=== PATIENT | male | born 1950 | race Caucasian/White ===

== ENCOUNTER 2016-08-10 20:53 | Emergency (ER) | payer MEDICARE, MEDICAID ==
[2016-08-10] MEDS: 0.9 % SODIUM CHLORIDE 1,000 ML BAG IV ONE (21:03)
[2016-08-10] MEDS: IPRATROPIUM/ALBUTEROL (0.5MG/3MG) NEB INH ONE (21:09)
--- NOTE | 2016-08-10 21:09 | Emergency Department Record ---
History of Present Illness - General Chief complaint: Nausea, Vomiting, Diarrhea Stated complaint: NAUSEA, BODY PAIN,UTI? Source: Patient Mode of Arrival: Ambulatory Limitations: No limitations - History of Present Illness Initial comments: 66 yo male presents not feeling well for about a week. He reports the symptoms started with cough, congestion, sore throat, body aches. His cough is productive. He is a smoker with a COPD history. He has had decreased appetite , nausea, vomited and some diarrhea. No definite fevers. He has had some chills. He has a chronic suprapubic catheter that is functioning well. No rash. No leg swelling. No blood in the stools or diarrhea. MD complaint: Diarrhea, Nausea, Vomiting, Other (cough) -: Days(s) Description of Vomiting: Watery Quality: Cramping Consistency: Intermittent Improves with: Rest Worsens with: Eating Context: Other (Recent URI symptoms) Associated Symptoms: Cough, Headaches, Loss of appetite, Malaise, Myalgias, Nausea/vomiting, Shortness of breath, Weakness - Related Data Previous Rx's Medication Instructions Recorded Ciprofloxacin HCl [Cipro] 500 mg PO BID #14 tab 05/29/15 Levofloxacin [Levaquin Tab] 500 mg PO DAILY #14 tab 08/10/16 Prednisone [Prednisone 20Mg] 20 mg PO BID #10 tab 08/10/16 Allergies Allergy/AdvReac Type Severity Reaction Status Date / Time codeine Allergy HIVES Verified 08/10/16 21:10 Penicillins Allergy HIVES Verified 05/29/15 01:33 Review of Systems Constitutional: Reports: Chills, Malaise, Weakness. Denies: Fever Eyes: Denies: Eye discharge, Eye pain, Photophobia, Vision change ENT: Reports: Congestion, Ear pain, Throat pain Respiratory: Reports: Cough, Dyspnea, Wheezes. Denies: Hemoptysis Cardiovascular: Denies: Chest pain, Palpitations, Syncope Endocrine: Reports: Fatigue Gastrointestinal: Reports: Abdominal pain, Diarrhea, Nausea, Vomiting. Denies: Constipation, Hematemesis, Hematochezia, Melena Genitourinary: Denies: Discharge, Dysuria, Frequency, Hematuria, Retention Musculoskeletal: Reports: Myalgia. Denies: Arthralgia, Joint swelling Skin: Denies: Bruising, Change in color, Rash Neurological: Reports: Headache Psychiatric: Denies: Anxiety Hematological/Lymphatic: Denies: Blood Clots, Easy bleeding, Easy bruising, Swollen glands Past Medical History - SOCIAL HISTORY Smoking Status: Current every day smoker - RESPIRATORY Hx Respiratory Disorders: Yes Hx Bronchitis: Yes - CARDIOVASCULAR Hx Cardio Disorders: No - NEURO Hx Neuro Disorders: No - GI Hx GI Disorders: No - Hx Genitourinary Disorders: Yes Hx Bladder Problem: Yes - ENDOCRINE Hx Endocrine Disorders: No - MUSCULOSKELETAL Hx Musculoskeletal Disorders: Yes Hx Back Injury: Yes - PSYCH Hx Psych Problems: No - HEMATOLOGY/ONCOLOGY Hx Hematology/Oncology Disorders: No Physical Exam - General General Appearance: Alert, Oriented x3, Cooperative, No acute distress Limitations: No limitations - Head Head exam: Atraumatic, Normal inspection - Eye Eye exam: Normal appearance, PERRL. negative: Conjunctival injection, Periorbital swelling, Scleral icterus - ENT ENT exam: Normal exam, Mucous membranes moist, Normal external ear exam, Normal orophraynx, TM's normal bilaterally Ear exam: Normal external inspection. negative: External canal tenderness Nasal Exam: Normal inspection, Discharge. negative: Sinus tenderness Mouth exam: Normal external inspection, Tongue normal. negative: Drooling, Muffled voice Teeth exam: Normal inspection. negative: Dental caries Throat exam: Tonsillar erythema. negative: Normal inspection, Tonsillomegaly, Tonsillar exudate, R peritonsillar mass, L peritonsillar mass - Neck Neck exam: Normal inspection, Full ROM. negative: Lymphadenopathy, Tenderness - Respiratory Respiratory exam: Decreased breath sounds, Rhonchi, Wheezes. negative: Normal lung sounds bilaterally, Accessory muscle use, Chest wall tenderness, Prolonged expiratory, Respiratory distress - Cardiovascular Cardiovascular Exam: Regular rate, Normal rhythm, Normal heart sounds - GI/Abdominal GI/Abdominal exam: Soft. negative: Tenderness - Rectal Rectal exam: Deferred - exam: Deferred - Extremities Extremities exam: Normal inspection, Full ROM, Normal capillary refill. negative: Pedal edema, Tenderness - Back Back exam: Reports: Normal inspection, Full ROM. Denies: Muscle spasm, Rash noted, Tenderness - Neurological Neurological exam: Alert, Normal gait, Oriented X3 - Psychiatric Psychiatric exam: Normal affect, Normal mood - Skin Skin exam: Dry, Intact, Normal color, Warm Course - Reevaluation(s) Reevaluation #1: The labs were reviewed No acute changes of the CBC,CMP UA is N positive and LE positive CXR was read as no acute changes Levaquin will be provided. 08/10/16 21:55 Reevaluation #2: No tachycardia or hypoxia in the ED He will be DC home with Levaquin, Prednisone He is to return if any concerns and otherwise call his PCP on Friday for close followup 08/10/16 21:56 Medical Decision Making - Lab Data Result diagrams: 08/10/16 21:10 08/10/16 21:10 Disposition Clinical Impression: COPD exacerbation, UTI (urinary tract infection) Condition: (1) Good Instructions: Urinary Tract Infection in Men (ED), COPD Exacerbation, [employer] (GEN) Additional Instructions: Return immediately if worse, fever or any new concerns Take the Levaquin twice daily Take the Prednisone twice daily Use your Inhaler every 4 hours as needed for wheezing You urine will be sent for a culture to ensure the antibiotic is effective Prescriptions: Levofloxacin [Levaquin Tab] 500 mg PO DAILY #14 tab Prednisone [Prednisone 20Mg] 20 mg PO BID #10 tab Forms: Patient Portal Access
[2016-08-10] MEDS ORDERED: METHYLPREDNISOLONE PF 125MG/VIAL IVP SCH (21:15)
[2016-08-10] MEDS: METHYLPREDNISOLONE PF 125MG/VIAL IVP ONE (21:16)
[2016-08-10 21:19] LABS: BASO % 0.7 % (0-6); EOS % 4.8 % (0-6); GRAN % 66.1 % (47-80); HEMATOCRIT 44.3 % (42.0-52.0); HEMOGLOBIN 14.9 gm/dl (14.0-18.0); MEAN CELL VOLUME 83.9 fl (81-97); MEAN CORPUSCULAR HEMOGLOBIN 28.2 pg (27-33); MEAN CORPUSCULAR HGB CONC 33.6 g/dl (32-36); MEAN PLATELET VOLUME 11.3 fl (7.4-10.4); MONO % 14.4 % (0-9); PLATELET COUNT 227 K/uL (130-400); RED BLOOD COUNT 5.28 M/uL (4.40-5.70); RED CELL DISTRIBUTION WIDTH 14.4 % (11.5-14.5); WHITE BLOOD COUNT W/O DIFF 7.6 K/uL (4.2-12.2)
[2016-08-10 21:20] LABS: URINE APPEARANCE CLEAR; URINE BILIRUBIN NEGATIVE (NEGATIVE); URINE BLOOD MODERATE (NEGATIVE); URINE COLOR YELLOW; URINE GLUCOSE (UA) NEGATIVE (NEGATIVE); URINE KETONE 15 mg/dL (NEGATIVE); URINE LEUKOCYTE ESTERASE MODERATE (NEGATIVE); URINE NITRITE POSITIVE (NEGATIVE); URINE UROBILINOGEN 0.2 E.U./dL (0.20 - 1.00)
[2016-08-10 21:29] LABS: URINE BACTERIA 4+; URINE MUCUS HEAVY; URINE RBC >50 (NONE SEEN); URINE TRIPLE PHOSPHATE CRYSTAL 4+ /hpf; URINE WBC >50 (0-2/hpf)
[2016-08-10 21:33] LABS: ALB/GLOB RATIO 1.5 (1.1-1.8); ALBUMIN 4.8 gm/dL (3.5-5.0); ALKALINE PHOSPHATASE 134 U/L (38-126); ALT/SGPT 45 U/L (21-72); ANION GAP 11.9 (7-16); AST/SGOT 28 U/L (17-59); BILIRUBIN,TOTAL 0.97 mg/dL (0.2-1.3); BLOOD UREA NITROGEN 10 mg/dL (9-20); CARBON DIOXIDE 22.1 mmol/L (22-30); CREATININE 0.8 mg/dL (0.66-1.25); EST GLOMERULAR FILTRATION RATE > 60 ml/min; GLUCOSE,RANDOM 112 mg/dL (70-110)
[2016-08-10 21:37] LABS: INFLUENZA A NEGATIVE (NEGATIVE); INFLUENZA B NEGATIVE (NEGATIVE); STREP A SCREEN NEGATIVE (NEGATIVE)
[2016-08-10] MEDS: KETOROLAC 30 MG/ML VIAL IVP ONE (21:59)
[2016-08-10] MEDS: LEVOFLOXACIN 500 MG TABLET PO ONE (22:00)
--- NOTE | 2016-08-14 13:10 | RADIOLOGY REPORT ---
EXAM: CHEST, TWO VIEWS HISTORY: DRY COUGH. TECHNIQUE: Two views of the chest were provided along with the comparison study dated 07/27/14. FINDINGS: The cardiomediastinal silhouette is within normal limits for size and contour. The bang appear unremarkable. Mild tortuosity of the thoracic aorta is noted. There is no radiographic evidence of a focal infiltrate, pleural effusion or pneumothorax. Incidental note is made of two nodular densities within the bilateral mid lung raya. This finding likely represents nipple shadows. IMPRESSION: NO RADIOGRAPHIC EVIDENCE OF AN ACUTE INTRATHORACIC PROCESS. JOB NUMBER: [id number] MTDD
== END 2016-08-10 22:18 | disposition home or self-care (01) ==
LOC: ER 20:53
DX: J44.1 Chronic obstructive pulmonary disease with (acute) exacerbation (principal); N39.0 Urinary tract infection, site not specified; R11.2 Nausea with vomiting, unspecified; R19.7 Diarrhea, unspecified; R31.29 Other microscopic hematuria; F17.210 Nicotine dependence, cigarettes, uncomplicated
CPT/HCPCS: 99284 ×2; 96374; 96375; 85025; 80053; 81001; 87205; 87880; 87400; 87086; 71020; 94640; J1885; J2930; J7030

== ENCOUNTER 2017-03-18 15:08 | Emergency (ER) | payer MEDICARE, MEDICAID ==
[2017-03-18 15:43] LABS: BASO % 0.2 % (0-6); EOS % 1.6 % (0-6); GRAN % 74.3 % (47-80); HEMATOCRIT 38.5 % (42.0-52.0); HEMOGLOBIN 12.8 gm/dl (14.0-18.0); LYMPH % 14.5 % (16-45); MEAN CELL VOLUME 83.7 fl (81-97); MEAN CORPUSCULAR HEMOGLOBIN 27.8 pg (27-33); MEAN CORPUSCULAR HGB CONC 33.2 g/dl (32-36); MEAN PLATELET VOLUME 11.1 fl (7.4-10.4); MONO % 9.4 % (0-9); PLATELET COUNT 234 K/uL (130-400); RED CELL DISTRIBUTION WIDTH 15.4 % (11.5-14.5); WHITE BLOOD COUNT W/O DIFF 10.1 K/uL (4.2-12.2)
[2017-03-18] MEDS: IPRATROPIUM/ALBUTEROL (0.5MG/3MG) NEB INH ONE (15:45)
--- NOTE | 2017-03-18 15:45 | Emergency Department Record ---
History of Present Illness - General Chief Complaint: Abdominal Pain Stated Complaint: POST OP PAIN Time Seen by Provider: 03/18/17 15:35 Source: Patient Mode of Arrival: Ambulatory Limitations: No limitations - History of Present Illness Initial Comments: 66 yo male presents with nausea and vomiting after hernia surgery yesterday at [facility] with Dr Tomlinson. He states he took a [place] yesterday evening and the symptoms started soon after. He has had a hernia for about 3 years. After getting home last night he became itching, some feeling of shortness of breath with wheezing (he has COPD), and nausea with vomiting. These symptoms continued this morning. He has some bloody drainage from the right lower abdominal surgery site with his forced vomiting. This has stopped. MD Complaint: Abdominal pain, Other (Nausea and Vomiting) Onset/Timin -: Days(s) Location: RLQ Radiation: Other Migration to: RLQ Quality: Sharp, Stabbing Consistency: Constant Improves With: Nothing Worsens With: Movement Context: Recent surgery/procedure Associated Symptoms: Anorexia - Related Data Home Medications Medication Instructions Recorded Confirmed Last Taken Albuterol Sulfate [Ventolin Hfa] 1 - 2 puff IH .EVERY 4-6 HRS PRN 03/18/1703/1803/18/17 Loratadine [Allergy Relief] 10 mg PO DAILY 03/18/17 03/18/17 03/18/17 Previous Rx's Medication Instructions Recorded Ondansetron [Zofran Odt] 4 mg PO Q8H #15 tab.rapdis 03/18/17 Allergies Allergy/AdvReac Type Severity Reaction Status Date / Time codeine Allergy HIVES Verified 08/10/16 21:10 hydrocodone Allergy SWELLING Verified 03/18/17 15:21 OF THE TONGUE Penicillins Allergy HIVES Verified 05/29/15 01:33 tramadol Allergy SWELLING Verified 03/18/17 15:21 OF THE TONGUE aspirin AdvReac NAUSEA Verified 03/18/17 15:21 Travel Screening - Travel/Exposure Within Last 30 Days Have you traveled within the last 30 days?: No - Travel/Exposure Within Last Year Have you traveled outside the [place] in the last year?: No - Additonal Travel Details Have you been exposed to anyone with a communicable illness?: No Review of Systems Constitutional: Denies: Chills, Fever, Malaise, Weakness Eyes: Denies: Eye discharge ENT: Denies: Congestion, Ear pain, Epistaxis, Throat pain Respiratory: Reports: Cough, Wheezes Cardiovascular: Denies: Chest pain, Palpitations, Syncope Endocrine: Denies: Fatigue, Polydipsia, Polyuria Gastrointestinal: Reports: As per HPI, Abdominal pain, Nausea, Vomiting. Denies : Diarrhea Genitourinary: Denies: Dysuria, Frequency, Hematuria Musculoskeletal: Denies: Arthralgia, Back pain, Myalgia Skin: Denies: Bruising, Change in color, Rash Neurological: Denies: Headache, Numbness, Weakness Psychiatric: Denies: Anxiety Hematological/Lymphatic: Denies: Blood Clots, Easy bleeding, Easy bruising, Swollen glands Past Medical History - SOCIAL HISTORY Smoking Status: Current every day smoker Alcohol Use: None Drug Use: None - RESPIRATORY Hx Respiratory Disorders: Yes Hx Bronchitis: Yes Hx COPD: Yes - CARDIOVASCULAR Hx Cardio Disorders: No - NEURO Hx Neuro Disorders: No - GI Hx GI Disorders: Yes Hx Hiatal Hernia: Yes - Hx Genitourinary Disorders: Yes Hx Bladder Problem: Yes - ENDOCRINE Hx Endocrine Disorders: No - MUSCULOSKELETAL Hx Musculoskeletal Disorders: Yes Hx Back Injury: Yes - PSYCH Hx Psych Problems: No - HEMATOLOGY/ONCOLOGY Hx Hematology/Oncology Disorders: No Family Medical History Any Significant Family History?: No Physical Exam - General General Appearance: Alert, Oriented x3, Cooperative, No acute distress Limitations: No limitations - Head Head exam: Normal inspection - Eye Eye exam: Normal appearance - ENT ENT exam: Normal exam Ear exam: Normal external inspection Nasal Exam: Normal inspection Mouth exam: Normal external inspection Teeth exam: Other (No teeth) - Neck Neck exam: Normal inspection, Full ROM. negative: Tenderness - Respiratory Respiratory exam: Decreased breath sounds, Wheezes. negative: Accessory muscle use, Prolonged expiratory, Respiratory distress, Rhonchi, Stridor - Cardiovascular Cardiovascular Exam: Regular rate, Normal rhythm, Normal heart sounds - GI/Abdominal GI/Abdominal exam: Soft, Tenderness (tender as would be expected at the surgical site, no bleeding or hematoma) - Rectal Rectal exam: Deferred - exam: Deferred - Extremities Extremities exam: Normal inspection, Full ROM, Normal capillary refill. negative: Tenderness - Back Back exam: Reports: Normal inspection, Full ROM. Denies: Muscle spasm, Rash noted, Tenderness - Neurological Neurological exam: Alert, Normal gait, Oriented X3 - Psychiatric Psychiatric exam: Normal affect, Normal mood - Skin Skin exam: Dry, Intact, Normal color, Warm Course Vital Signs 03/18/17 15:09 Temperature 98.8 F Pulse Rate 89 Respiratory 20 Rate Blood Pressure 143/97 Pulse Ox 94 L - Reevaluation(s) Reevaluation #1: 03/18/17 15:50 No blood in the SP cath bag Hgb is 12.8 with prior pre op of 13.8 Reevaluation #2: I SW Cristobal Maciel PAC for Dr Tomlinson. We discussed the symptoms and the incisional bleeding that occurred this morning with vomiting. The incision appears intake without ongoing bleeding. The patient can call the office for updates and close follow up.. 03/18/17 16:11 Reevaluation #3: On recheck the patient is 80% better His breathing is very comfortable No current nausea His post op pain is well controlled. 03/18/17 16:24 No acute changes on the CMP 03/18/17 16:35 Reevaluation #4: The patient has very minimal 2/10 pain. No nausea. He states he does not want or need any pain medication He is ready for DC home We discussed home care and reasons to return as well as follow up with his surgeon He will be provided Zofran for home use. 03/18/17 16:41 Medical Decision Making - Lab Data Result diagrams: 03/18/17 15:35 03/18/17 15:35 Disposition Disposition: Discharge Clinical Impression: Post-op pain Nausea and vomiting Qualifiers: Vomiting type: unspecified Vomiting Intractability: non-intractable Qualified Code(s): R11.2 - Nausea with vomiting, unspecified Medication reaction Qualifiers: Encounter type: initial encounter Qualified Code(s): T88.7XXA - Unspecified adverse effect of drug or medicament, initial encounter Disposition: Home, Self-Care Condition: (1) Good Instructions: Acute Nausea and Vomiting (ED) Additional Instructions: Call Dr Tomlinson for close follow up Return or Call Dr Tomlinson if you have any pain or return of bleeding You may take the Zofran every 4-6 hours for nausea Use our Inhaler every 4-6 hours has needed if wheezing Prescriptions: Ondansetron [Zofran Odt] 4 mg PO Q8H #15 tab.rapdis Forms: Patient Portal Access Time of Disposition: 17:00 Quality - Quality Measures Quality Measures: N/A - Blood Pressure Screening View Details: Yes Does Patient Have Any of the Following: No Blood Pressure Classification: Hypertensive Reading Systolic Measurement: 143 Diastolic Measurement: 97 Screening for High Blood Pressure: < Pre-Hypertensive BP, F/U Documented > [ G8950] Pre-Hypertensive Follow-up Interventions: Referral to alternative/primary care provider.
[2017-03-18] MEDS: ONDANSETRON HCL IV 4 MG/2 ML VIAL IVP ONE (15:46)
[2017-03-18] MEDS: ACETAMINOPHEN 1,000 MG/100 ML BTL IVPB ONE (15:46)
[2017-03-18 16:04] LABS: ALB/GLOB RATIO 1.3 (1.1-1.8); ALBUMIN 4.1 gm/dL (3.5-5.0); ALKALINE PHOSPHATASE 86 U/L (38-126); ALT/SGPT 49 U/L (21-72); ANION GAP 8.8 (7-16); AST/SGOT 25 U/L (17-59); BILIRUBIN,TOTAL 1.16 mg/dL (0.2-1.3); BLOOD UREA NITROGEN 10 mg/dL (9-20); CARBON DIOXIDE 24.2 mmol/L (22-30); CREATININE 0.7 mg/dL (0.66-1.25); EST GLOMERULAR FILTRATION RATE > 60 ml/min; GLUCOSE,RANDOM 106 mg/dL (70-110); TOTAL PROTEIN 7.3 gm/dL (6.3-8.2)
[2017-03-18 16:05] LABS: INR 0.98; PARTIAL THROMBOPLASTIN TIME 30.8 SECONDS (24.5-39.1); PROTHROMBIN TIME (PATIENT) 10.6 SECONDS (9.5-12.1)
[2017-03-18] MEDS: ONDANSETRON 4 MG ODT TABLET SL ONE (17:05)
== END 2017-03-18 17:12 | disposition home or self-care (01) ==
LOC: ER 15:08
DX: T40.2X5A Adverse effect of other opioids, initial encounter (principal); G89.18 Other acute postprocedural pain; R10.31 Right lower quadrant pain; R11.2 Nausea with vomiting, unspecified; K14.8 Other diseases of tongue; H44.9 Unspecified disorder of globe
CPT/HCPCS: 99284 ×2; 96365; 96375; 85025; 85730; 85610; 80053; 94640; J2405

== ENCOUNTER 2017-08-06 15:27 | Emergency (ER) | payer MEDICARE, MEDICAID ==
[2017-08-06] MEDS ORDERED: ASPIRIN 81 MG CHEWABLE TABLET PO ONE (15:31)
[2017-08-06] MEDS ORDERED: IPRATROPIUM/ALBUTEROL (0.5MG/3MG) NEB INH ONE (15:38)
[2017-08-06] MEDS ORDERED: METHYLPREDNISOLONE PF 125MG/VIAL IVP ONE (15:43)
--- NOTE | 2017-08-06 15:44 | Emergency Department Record ---
History of Present Illness - General Chief Complaint: Shortness of breath Stated Complaint: KORTNEY Time Seen by Provider: 08/06/17 15:30 Source: Patient, RN notes reviewed - History of Present Illness Initial Comments: chest pain with breathing and sob for 2 weeks and he could not find his ventolin inhaler and he only had his atrovent inhaler and it wasn't helping. Wheezing upon arrival. MD Complaint: Cough, Shortness of breath - Related Data Home Medications Medication Instructions Recorded Confirmed Last Taken Ipratropium Brule [Atrovent Hfa] 17 mcg IH ASDIR 08/06/17 08/06/17 Unknown Previous Rx's Medication Instructions Recorded Albuterol Sulfate [Ventolin Hfa] 1 - 2 puff IH .EVERY 4-6 HOURS PRN 08/06/17 #1 inhaler Azithromycin [Zithromax] 250 mg PO DAILY #6 tab 08/06/17 Prednisone [Prednisone 10Mg] 10 mg PO ASDIR #30 tab 08/06/17 Allergies Allergy/AdvReac Type Severity Reaction Status Date / Time codeine Allergy HIVES Verified 08/10/16 21:10 hydrocodone Allergy SWELLING Verified 03/18/17 15:21 OF THE TONGUE Penicillins Allergy HIVES Verified 05/29/15 01:33 tramadol Allergy SWELLING Verified 03/18/17 15:21 OF THE TONGUE aspirin AdvReac NAUSEA Verified 03/18/17 15:21 Review of Systems Reviewed: No additional complaints except as noted below Constitutional: Reports: As per HPI. Denies: Chills, Fever, Malaise, Night sweats, Weakness, Weight change Eyes: Reports: As per HPI. Denies: Eye discharge, Eye pain, Photophobia, Vision change ENT: Reports: As per HPI, Congestion. Denies: Dental pain, Ear pain, Epistaxis , Hearing loss, Throat pain Respiratory: Reports: As per HPI, Cough, Dyspnea. Denies: Hemoptysis, Stridor, Wheezes Cardiovascular: Reports: As per HPI, Chest pain. Denies: Arrhythmia, Dyspnea on exertion, Edema, Murmurs, Orthopnea, Palpitations, Paroxysmal nocturnal dyspnea, Rheumatic Fever, Syncope Endocrine: Reports: As per HPI. Denies: Fatigue, Heat or cold intolerance, Polydipsia, Polyuria Gastrointestinal: Reports: As per HPI. Denies: Abdominal pain, Constipation, Diarrhea, Hematemesis, Hematochezia, Melena, Nausea, Vomiting Genitourinary: Reports: As per HPI. Denies: Dysuria, Frequency, Hematuria, Incontinence, Retention, Testicular pain, Testicular mass, Urgency Musculoskeletal: Reports: As per HPI. Denies: Arthralgia, Back pain, Gout, Joint swelling, Myalgia, Neck pain Skin: Reports: As per HPI. Denies: Bruising, Change in color, Change in hair/ nails, Lesions, Pruritus, Rash Neurological: Reports: As per HPI. Denies: Abnormal gait, Confusion, Headache, Numbness, Paresthesias, Seizure, Tingling, Tremors, Vertigo, Weakness Psychiatric: Reports: As per HPI. Denies: Anxiety, Auditory hallucinations, Depression, Homicidal thoughts, Suicidal thoughts, Visual hallucinations Hematological/Lymphatic: Reports: As per HPI. Denies: Anemia, Blood Clots, Easy bleeding, Easy bruising, Swollen glands Past Medical History - SOCIAL HISTORY Smoking Status: Current every day smoker Drug Use: None - RESPIRATORY Hx Respiratory Disorders: Yes Hx Bronchitis: Yes Hx COPD: Yes - CARDIOVASCULAR Hx Cardio Disorders: No - NEURO Hx Neuro Disorders: No - GI Hx GI Disorders: Yes Hx Hiatal Hernia: Yes - Hx Genitourinary Disorders: Yes Hx Bladder Problem: Yes - ENDOCRINE Hx Endocrine Disorders: No - MUSCULOSKELETAL Hx Musculoskeletal Disorders: Yes Hx Back Injury: Yes - PSYCH Hx Psych Problems: No - HEMATOLOGY/ONCOLOGY Hx Hematology/Oncology Disorders: No Physical Exam - General General Appearance: Alert, Oriented x3, Cooperative, Moderate distress - Head Head exam: Normal inspection - Eye Eye exam: Normal appearance, PERRL Pupils: Normal accommodation - ENT ENT exam: Normal exam, Mucous membranes moist, Normal external ear exam, Normal orophraynx, TM's normal bilaterally Ear exam: Normal external inspection. negative: External canal tenderness Nasal Exam: Normal inspection. negative: Discharge, Sinus tenderness Mouth exam: Normal external inspection, Tongue normal Teeth exam: Normal inspection. negative: Dental caries Throat exam: Normal inspection. negative: Tonsillar erythema, Tonsillar exudate - Neck Neck exam: Normal inspection, Full ROM. negative: Tenderness - Respiratory Respiratory exam: Wheezes. negative: Respiratory distress - Cardiovascular Cardiovascular Exam: Regular rate, Normal rhythm, Normal heart sounds - GI/Abdominal GI/Abdominal exam: Soft, Normal bowel sounds. negative: Tenderness - Rectal Rectal exam: Deferred - exam: Deferred - Extremities Extremities exam: Normal inspection, Full ROM, Normal capillary refill. negative: Tenderness - Back Back exam: Reports: Normal inspection, Full ROM. Denies: Muscle spasm, Rash noted, Tenderness - Neurological Neurological exam: Alert, Normal gait, Oriented X3, Reflexes normal - Psychiatric Psychiatric exam: Normal affect, Normal mood - Skin Skin exam: Dry, Intact, Normal color, Warm Course - Reevaluation(s) Reevaluation #1: improved with duoneb treat 08/06/17 15:57 Medical Decision Making - Data Complexity MDM Data: Labs Ordered and/or Reviewed, X-Ray Ordered and/or Reviewed ( hyperinflation), EKG Ordered and/or Reviewed (no acute changes) - Lab Data Result diagrams: 08/06/17 15:39 08/06/17 15:39 - EKG Data EKG: No Acute Changes Disposition Clinical Impression: Bronchitis, COPD (chronic obstructive pulmonary disease) with acute bronchitis Dyspnea Qualifiers: Dyspnea type: unspecified Qualified Code(s): R06.00 - Dyspnea, unspecified Disposition: Home, Self-Care Condition: (1) Good Instructions: COPD (Chronic Obstructive Pulmonary Disease) (ED) Additional Instructions: follow up with family in 5 days use atrovent inhaler one puff four times a day drink fluids Prescriptions: Albuterol Sulfate [Ventolin Hfa] 1 - 2 puff IH .EVERY 4-6 HOURS PRN #1 inhaler PRN Reason: Difficulty In Breathing Azithromycin [Zithromax] 250 mg PO DAILY #6 tab Prednisone [Prednisone 10Mg] 10 mg PO ASDIR #30 tab Forms: Patient Portal Access Time of Disposition: 16:52 Quality - Quality Measures Quality Measures: N/A - Blood Pressure Screening Does Patient Have Any of the Following: No Blood Pressure Classification: Hypertensive Reading Systolic Measurement: 172 Diastolic Measurement: 110 Screening for High Blood Pressure: < First Hypertensive BP, F/U Documented > [ G8950] First Hypertensive Follow-up Interventions: Referral to alternative/primary care provider.
[2017-08-06 16:01] LABS: BASO % 0.7 % (0-6); EOS % 5.8 % (0-6); GRAN % 56.9 % (47-80); HEMATOCRIT 45.2 % (42.0-52.0); HEMOGLOBIN 14.4 gm/dl (14.0-18.0); MEAN CELL VOLUME 83.9 fl (81-97); MEAN CORPUSCULAR HEMOGLOBIN 26.7 pg (27-33); MEAN CORPUSCULAR HGB CONC 31.9 g/dl (32-36); MEAN PLATELET VOLUME 11.5 fl (7.4-10.4); MONO % 8.6 % (0-9); PLATELET COUNT 273 K/uL (130-400); RED BLOOD COUNT 5.39 M/uL (4.40-5.70); RED CELL DISTRIBUTION WIDTH 14.9 % (11.5-14.5); WHITE BLOOD COUNT W/O DIFF 7.1 K/uL (4.2-12.2)
[2017-08-06 16:11] LABS: BLOOD UREA NITROGEN 20 mg/dL (8-23); CREATININE 0.8 mg/dL (0.7-1.2); EST GLOMERULAR FILTRATION RATE > 60 mL/min
[2017-08-06 16:13] LABS: GLUCOSE,RANDOM 94 mg/dL (74-109)
[2017-08-06 16:18] LABS: CKMB 4.1 ng/mL (<6.73)
[2017-08-06] MEDS ORDERED: AZITHROMYCIN 500 MG TABLET PO ONE (16:45)
--- NOTE | 2017-08-07 10:35 | RADIOLOGY REPORT ---
EXAM: CHEST, TWO VIEWS HISTORY: DIFFICULTY IN BREATHING. TECHNIQUE: Frontal and lateral views of the chest were performed. Comparison: Prior exam dated 08/10/16. FINDINGS: The heart size is normal. The lungs are hyperinflated. Stable calcified granuloma let mid lung. No infiltrate or pleural effusion. The osseous structures are normal. IMPRESSION: HYPERINFLATED LUNGS. NO ACUTE PULMONARY DISEASE PROCESS. JOB NUMBER: [id number] MTDD
== END 2017-08-06 17:20 | disposition home or self-care (01) ==
LOC: ER 15:27
DX: J44.1 Chronic obstructive pulmonary disease with (acute) exacerbation (principal); J20.9 Acute bronchitis, unspecified; J44.0 Chronic obstructive pulmonary disease with (acute) lower respiratory infection; R06.00 Dyspnea, unspecified; F17.210 Nicotine dependence, cigarettes, uncomplicated
CPT/HCPCS: 71020; 80048; 82553; 83605; 84484; 85025; 85730; 93005; 93010; 94640; 96374; 99284; J2930

== ENCOUNTER 2017-10-10 12:15 | Emergency (ER) | payer MEDICARE, MEDICAID ==
[2017-10-10] MEDS ORDERED: IPRATROPIUM/ALBUTEROL (0.5MG/3MG) NEB INH ONE (12:27)
[2017-10-10] MEDS ORDERED: BENZONATATE 100 MG CAPSULE PO ONE (12:28)
--- NOTE | 2017-10-10 12:33 | Emergency Department Record ---
History of Present Illness - General Chief Complaint: Cough Stated Complaint: COUGH/FEVER/BODY ACHES Time Seen by Provider: 10/10/17 12:21 Source: Patient Mode of Arrival: Ambulatory Limitations: No limitations - History of Present Illness Initial Comments: 67 yo male presents with cough for 3 days. He has sinus drainage, congestion and sore throat. He has muscle aches. He has had some subjective fevers. He is a smoker. He did not have a Flu shot this year. He had similar symptoms in August. He states he got hives from prednisone at that time. No hemoptysis. No edema of the legs. CXR in August demonstrated hyperinflation. MD Complaint: Cough, Fever, Nasal congestion, Rhinorrhea, Sinus pain, Sore throat, Other (Wheezing) Onset/Timin -: Days(s) Severity: Moderate Consistency: Intermittent Improves With: Nothing Worsens With: Nothing Context: Sick contacts Associated Symptoms: Cough, Fever, Rhinorrhea, Sore throat Treatments Prior to Arrival: Other (Albuterol) - Related Data Previous Rx's Medication Instructions Recorded Albuterol Sulfate [Ventolin Hfa] 1 - 2 puff IH .EVERY 4-6 HOURS PRN 08/06/17 #1 inhaler Albuterol Sulfate 0.5 ml NEB Q4H #90 ml 10/10/17 Albuterol Sulfate 1.25 mg IH Q4H #1 vial.neb 10/10/17 Albuterol Sulfate 0.083% [Neb] 3 ml NEB .EVERY 4-6 HOURS PRN #90 10/10/17 ml Albuterol Sulfate [Accuneb] 3 ml NEB Q4H #90 ml 10/10/17 Benzonatate [Tessalon] 1 cap PO Q8H PRN #25 cap 10/10/17 Ipratropium Br. 0.02% Neb 0.5 mg INH Q12HR #1 ml 10/10/17 [Atrovent 0.02% Neb] Ipratropium [place] [Atrovent Hfa] 12.9 gm IH Q12H #1 hfa.aer.ad 10/10/17 Levofloxacin [Levaquin Tab] 500 mg PO DAILY #7 tab 10/10/17 Allergies Allergy/AdvReac Type Severity Reaction Status Date / Time acetaminophen Allergy HIVES Verified 10/10/17 12:23 azithromycin Allergy HIVES Verified 10/10/17 12:26 codeine Allergy HIVES Verified 10/10/17 12:21 hydrocodone Allergy SWELLING Verified 10/10/17 12:21 OF THE TONGUE Penicillins Allergy HIVES Verified 10/10/17 12:21 prednisone Allergy HIVES Verified 10/10/17 12:26 tramadol Allergy SWELLING Verified 10/10/17 12:21 OF THE TONGUE aspirin AdvReac NAUSEA Verified 10/10/17 12:21 ibuprofen AdvReac stomach Verified 10/10/17 12:23 bleed Travel Screening - Travel/Exposure Within Last 30 Days Have you traveled within the last 30 days?: No Review of Systems Constitutional: Reports: Fever. Denies: Chills, Malaise, Weakness Eyes: Denies: Eye discharge ENT: Reports: Congestion, Throat pain. Denies: Ear pain Respiratory: Reports: Cough, Dyspnea, Wheezes. Denies: Hemoptysis Cardiovascular: Denies: Chest pain, Syncope Endocrine: Denies: Fatigue Gastrointestinal: Denies: Abdominal pain, Diarrhea, Nausea, Vomiting Genitourinary: Denies: Dysuria, Frequency, Hematuria Musculoskeletal: Reports: Myalgia. Denies: Arthralgia, Back pain, Neck pain Skin: Denies: Bruising, Change in color, Rash Neurological: Denies: Headache, Numbness, Weakness Psychiatric: Denies: Anxiety Hematological/Lymphatic: Denies: Blood Clots, Easy bleeding, Easy bruising, Swollen glands Past Medical History - SOCIAL HISTORY Smoking Status: Current every day smoker Alcohol Use: None Drug Use: None - RESPIRATORY Hx Respiratory Disorders: Yes Hx Asthma: Yes Hx Bronchitis: Yes Hx COPD: Yes - CARDIOVASCULAR Hx Cardio Disorders: No - NEURO Hx Neuro Disorders: No - GI Hx GI Disorders: Yes Hx Hiatal Hernia: Yes - Hx Genitourinary Disorders: Yes Hx Bladder Problem: Yes - ENDOCRINE Hx Endocrine Disorders: No - MUSCULOSKELETAL Hx Musculoskeletal Disorders: Yes Hx Back Injury: Yes - PSYCH Hx Psych Problems: No - HEMATOLOGY/ONCOLOGY Hx Hematology/Oncology Disorders: No Family Medical History Any Significant Family History?: No Physical Exam - General General Appearance: Alert, Oriented x3, Cooperative, No acute distress Limitations: No limitations - Head Head exam: Normal inspection - Eye Eye exam: Normal appearance. negative: Conjunctival injection, Scleral icterus - ENT ENT exam: Normal exam, Mucous membranes moist, Normal orophraynx (no swelling or inflammation) Ear exam: Normal external inspection Nasal Exam: Discharge (clear), Sinus tenderness. negative: Dried blood Mouth exam: Normal external inspection, Tongue normal Teeth exam: Normal inspection. negative: Dental caries Throat exam: Normal inspection. negative: Tonsillar erythema, Tonsillomegaly, Tonsillar exudate, R peritonsillar mass, L peritonsillar mass - Neck Neck exam: Normal inspection, Full ROM. negative: Lymphadenopathy, Tenderness - Respiratory Respiratory exam: Decreased breath sounds, Prolonged expiratory, Wheezes, Other (no conversational dyspnea, occasional cough). negative: Normal lung sounds bilaterally, Accessory muscle use, Chest wall tenderness, Respiratory distress, Rhonchi, Stridor - Cardiovascular Cardiovascular Exam: Regular rate, Normal rhythm, Normal heart sounds Peripheral Pulses: 2+: Radial (R), Radial (L) - GI/Abdominal GI/Abdominal exam: Soft. negative: Tenderness - Rectal Rectal exam: Deferred - exam: Deferred - Extremities Extremities exam: Normal inspection. negative: Pedal edema - Neurological Neurological exam: Alert, Oriented X3 - Psychiatric Psychiatric exam: Normal affect, Normal mood - Skin Skin exam: Dry, Intact, Normal color, Warm Course Vital Signs 10/10/17 12:19 Temperature 99.0 F Pulse Rate 97 H Respiratory 20 Rate Blood Pressure 169/100 Pulse Ox 98 - Reevaluation(s) Reevaluation #1: 10/10/17 12:44 The Influenza are negative for A and B 10/10/17 12:46 The patient declines prednisone or steroids. He states he is allergic with hives the last time he took them. No fever, hypoxia in the ED He appears comfortable without outward signs of dyspnea 10/10/17 13:05 Extensive education was provided to the patient by me and respiratory therapy regarding smoking, proper medication use and mechanics of his inhaler with spacer, resources to get affordable medications provided to the patient. He was encourage to follow through on the education and resources provided. Disposition Disposition: Discharge Clinical Impression: COPD (chronic obstructive pulmonary disease) with acute bronchitis, Bronchitis Disposition: Home, Self-Care Condition: (1) Good Instructions: Acute Bronchitis (ED), COPD (Chronic Obstructive Pulmonary Disease) (ED) Additional Instructions: Consider stopping smoking Call your doctor for a recheck this week Return in the next 1-2 days if not improving Prescriptions: Ipratropium Br. 0.02% Neb [Atrovent 0.02% Neb] 0.5 mg INH Q12HR #1 ml Albuterol Sulfate [Accuneb] 3 ml NEB Q4H #90 ml Albuterol Sulfate 1.25 mg IH Q4H #1 vial.neb Albuterol Sulfate 0.5 ml NEB Q4H #90 ml Albuterol Sulfate 0.083% [Neb] 3 ml NEB .EVERY 4-6 HOURS PRN #90 ml PRN Reason: Difficulty In Breathing Benzonatate [Tessalon] 1 cap PO Q8H PRN #25 cap PRN Reason: Cough Ipratropium [place] [Atrovent Hfa] 12.9 gm IH Q12H #1 hfa.aer.ad Levofloxacin [Levaquin Tab] 500 mg PO DAILY #7 tab Forms: Patient Portal Access Time of Disposition: 13:07 Quality - Quality Measures Quality Measures: N/A - Blood Pressure Screening Does Patient Have Any of the Following: No Blood Pressure Classification: Hypertensive Reading Systolic Measurement: 169 Diastolic Measurement: 100 Screening for High Blood Pressure: < Pre-Hypertensive BP, F/U Documented > [ G8950] Pre-Hypertensive Follow-up Interventions: Referral to alternative/primary care provider.
[2017-10-10 12:37] LABS: INFLUENZA A NEGATIVE (NEGATIVE)
[2017-10-10 12:38] LABS: INFLUENZA B NEGATIVE (NEGATIVE)
== END 2017-10-10 13:23 | disposition home or self-care (01) ==
LOC: ER 12:15
DX: J44.9 Chronic obstructive pulmonary disease, unspecified (principal); J20.9 Acute bronchitis, unspecified; F17.210 Nicotine dependence, cigarettes, uncomplicated
CPT/HCPCS: 87400; 94640; 99283

== ENCOUNTER 2017-11-10 18:01 | Emergency (ER) | payer MEDICARE, MEDICAID ==
--- NOTE | 2017-11-10 18:24 | Emergency Department Record ---
History of Present Illness - General Chief Complaint: Chest Pain Time Seen by Provider: 11/10/17 18:15 Source: Patient Mode of Arrival: Ambulatory Limitations: No limitations - History of Present Illness Initial Comments: The patient is here due a hx of Sharp CP for 5 months off and on. The pain is sharp and stabbing and intermittently radiates to his upper back. He does have intermittent SOB with the pain at times. The pain seems to wax and wane with no regularity and no precipitating factors. The patient also has had epigastric AP off and on at times with it but not now. He has been to the ER twice for similar issues and also to his PCP. Per the patient his PCP is setting him up for an MRI of either his upper back or chest due to the issues. Now the pain was worse last evening so he decided to come to the ER this evening. There has been no cough, fever, vomiting, diarrhea, or KRISHNA. The patient did state he had blood in his stool last week but that always occurs when he takes pain medicines as he did last week. There has been no blood the last few days. MD Complaint: Chest pain Onset/Timin -: Month(s) Pain Location: Epigastric Pain Radiation: Back Severity: Moderate Severity scale (1-10): 5 Quality: Sharp Consistency: Intermittent Improves With: Nothing Worsens With: Nothing Treatments Prior to Arrival: None - Related Data Home Medications Medication Instructions Recorded Confirmed Last Taken Ondansetron HCl [Zofran] 4 mg PO ASDIR 11/10/17 11/10/17 Unknown Previous Rx's Medication Instructions Recorded Albuterol Sulfate [Ventolin Hfa] 1 - 2 puff IH .EVERY 4-6 HOURS PRN 08/06/17 #1 inhaler Albuterol Sulfate 0.083% [Neb] 3 ml NEB .EVERY 4-6 HOURS PRN #90 10/10/17 ml Albuterol Sulfate [Accuneb] 3 ml NEB Q4H #90 ml 10/10/17 Ipratropium Br. 0.02% Neb 0.5 mg INH Q12HR #1 ml 10/10/17 [Atrovent 0.02% Neb] Ipratropium [place] [Atrovent Hfa] 12.9 gm IH Q12H #1 hfa.aer.ad 10/10/17 Allergies Allergy/AdvReac Type Severity Reaction Status Date / Time acetaminophen Allergy HIVES Verified 11/10/17 18:10 azithromycin Allergy HIVES Verified 11/10/17 18:10 codeine Allergy HIVES Verified 11/10/17 18:10 hydrocodone Allergy SWELLING Verified 11/10/17 18:10 OF THE TONGUE Penicillins Allergy HIVES Verified 11/10/17 18:10 prednisone Allergy HIVES Verified 11/10/17 18:10 tramadol Allergy SWELLING Verified 11/10/17 18:10 OF THE TONGUE aspirin AdvReac NAUSEA Verified 11/10/17 18:10 ibuprofen AdvReac stomach Verified 11/10/17 18:10 bleed Travel Screening - Travel/Exposure Within Last 30 Days Have you traveled within the last 30 days?: No Review of Systems Constitutional: Denies: Chills, Fever Eyes: Denies: Eye discharge ENT: Denies: Congestion Respiratory: Reports: Dyspnea. Denies: Cough, Hemoptysis Cardiovascular: Reports: Chest pain. Denies: Arrhythmia, Dyspnea on exertion Endocrine: Denies: Fatigue Gastrointestinal: Denies: Diarrhea Genitourinary: Denies: Dysuria Musculoskeletal: Denies: Arthralgia Past Medical History - SOCIAL HISTORY Smoking Status: Former smoker Alcohol Use: None Drug Use: None - RESPIRATORY Hx Respiratory Disorders: Yes Hx Asthma: Yes Hx Bronchitis: Yes Hx COPD: Yes - CARDIOVASCULAR Hx Cardio Disorders: No - NEURO Hx Neuro Disorders: No - GI Hx GI Disorders: Yes Hx Reflux: Yes Hx Hiatal Hernia: Yes - Hx Genitourinary Disorders: Yes Hx Bladder Problem: Yes - ENDOCRINE Hx Endocrine Disorders: No - MUSCULOSKELETAL Hx Musculoskeletal Disorders: Yes Hx Back Injury: Yes - PSYCH Hx Psych Problems: No - HEMATOLOGY/ONCOLOGY Hx Hematology/Oncology Disorders: No Family Medical History Any Significant Family History?: No Physical Exam - General General Appearance: Alert, Oriented x3, Cooperative, No acute distress - Head Head exam: Atraumatic, Normocephalic, Normal inspection - Eye Eye exam: Normal appearance, PERRL - ENT Throat exam: Normal inspection. negative: Tonsillar erythema, Tonsillar exudate - Neck Neck exam: Normal inspection, Full ROM. negative: Tenderness - Respiratory Respiratory exam: Normal lung sounds bilaterally. negative: Decreased breath sounds, Respiratory distress, Stridor, Wheezes - Cardiovascular Cardiovascular Exam: Regular rate, Normal rhythm, Normal heart sounds. negative : Diastolic murmur, Systolic murmur - GI/Abdominal GI/Abdominal exam: Soft, Normal bowel sounds, Tenderness (There is mild epigastric tenderness.). negative: Guarding, Organomegaly, Pulsatile mass, Rebound, Rigid - Extremities Extremities exam: Normal inspection, Full ROM, Normal capillary refill. negative: Tenderness - Neurological Neurological exam: Alert, Normal gait. negative: Abnormal gait, Motor sensory deficit Course Vital Signs 11/10/17 18:02 Temperature 97.4 F L Pulse Rate 112 H Respiratory 18 Rate Blood Pressure 147/96 Pulse Ox 96 - Reevaluation(s) Reevaluation #1: After a lengthy discussion the patient's care was turned over to Dr. Carballo due to shift change. 11/10/17 18:47 Medical Decision Making - Data Complexity MDM Data: EKG Ordered and/or Reviewed - Lab Data Result diagrams: 11/10/17 18:34 11/10/17 18:34 - EKG Data -: EKG Interpreted by Me EKG: No Acute Changes, Normal EKG Disposition Referrals: [facility] Specialty Clinics [Provider Group] Forms: Patient Portal Access Quality - Quality Measures Quality Measures: N/A - Blood Pressure Screening View Details: Yes Does Patient Have Any of the Following: No Blood Pressure Classification: Hypertensive Reading Systolic Measurement: 147 Diastolic Measurement: 96 Screening for High Blood Pressure: < First Hypertensive BP, F/U Documented > [ G8950] First Hypertensive Follow-up Interventions: Referral to alternative/primary care provider.
[2017-11-10] MEDS ORDERED: AL HYDROX/MAG HYDROX 30ML UD PO PRN (18:25)
[2017-11-10] MEDS ORDERED: LIDOCAINE 5% PATCH TOP ONE (18:34)
[2017-11-10 18:43] LABS: BASO % 0.6 % (0-6); EOS % 5.3 % (0-6); GRAN % 72.4 % (47-80); HEMATOCRIT 34.9 % (42.0-52.0); HEMOGLOBIN 11.1 gm/dl (14.0-18.0); LYMPH % 14.2 % (16-45); MEAN CELL VOLUME 81.9 fl (81-97); MEAN CORPUSCULAR HGB CONC 31.8 g/dl (32-36); MEAN PLATELET VOLUME 10.7 fl (7.4-10.4); MONO % 7.5 % (0-9); PLATELET COUNT 444 K/uL (130-400); RED BLOOD COUNT 4.26 M/uL (4.40-5.70); RED CELL DISTRIBUTION WIDTH 14.1 % (11.5-14.5); WHITE BLOOD COUNT W/O DIFF 8.5 K/uL (4.2-12.2)
[2017-11-10 18:50] LABS: BLOOD UREA NITROGEN 11 mg/dL (8-23)
[2017-11-10 18:51] LABS: CREATININE 0.7 mg/dL (0.7-1.2); EST GLOMERULAR FILTRATION RATE > 60 mL/min; TOTAL PROTEIN 7.6 g/dL (6.6-8.7)
[2017-11-10 18:52] LABS: INR 0.9; PARTIAL THROMBOPLASTIN TIME 37.2 SECONDS (24.5-39.1); PROTHROMBIN TIME (PATIENT) 10.2 SECONDS (9.5-12.1)
[2017-11-10 18:53] LABS: GLUCOSE,RANDOM 111 mg/dL (74-109)
[2017-11-10 18:56] LABS: ALB/GLOB RATIO 1.1 (1.1-1.8); ALKALINE PHOSPHATASE 155 U/L (40-129); ALT/SGPT 21 U/L (<41); AST/SGOT 18 U/L (10.0-50.0); CREATINE PHOSPHOKINASE 109 U/L (39-308); LIPASE 20 U/L (13-60)
[2017-11-10 18:59] LABS: CKMB 2.9 ng/mL (<6.73)
[2017-11-10] MEDS ORDERED: 0.9 % SODIUM CHLORIDE 1,000 ML BAG IV ONE (19:00)
[2017-11-10 19:07] LABS: THYROID STIMULATING HORMONE 0.86 uIU/mL (0.270-4.20)
--- NOTE | 2017-11-10 19:15 | Emergency Department Record ---
History of Present Illness - General Chief Complaint: Chest Pain Time Seen by Provider: 11/10/17 18:15 Source: Patient Mode of Arrival: Ambulatory Limitations: No limitations - History of Present Illness Initial comments: 67 yo male was turned over at the bedside with Dr Ross. The patient presents with several concerns that have been ongoing for about 5-6 months. He has had chronic pains in the back and chest, cough, poor appetite, nausea, epigastric pain, occasional blood in the stools. He has been seen on several occasions in the ER and in his family doctor's office. He has had testing in the ER and through his PCP. He is scheduled for additional testing. Recently in the last week he has lost 6 pounds due to no tolerating any foods and even some liquids. -: Month(s) Severity scale (1-10): 5 - Related Data Home Medications Medication Instructions Recorded Confirmed Last Taken Ondansetron HCl [Zofran] 4 mg PO ASDIR 11/10/17 11/10/17 Unknown Previous Rx's Medication Instructions Recorded Albuterol Sulfate [Ventolin Hfa] 1 - 2 puff IH .EVERY 4-6 HOURS PRN 08/06/17 #1 inhaler Albuterol Sulfate 0.083% [Neb] 3 ml NEB .EVERY 4-6 HOURS PRN #90 10/10/17 ml Albuterol Sulfate [Accuneb] 3 ml NEB Q4H #90 ml 10/10/17 Ipratropium Br. 0.02% Neb 0.5 mg INH Q12HR #1 ml 10/10/17 [Atrovent 0.02% Neb] Ipratropium [place] [Atrovent Hfa] 12.9 gm IH Q12H #1 hfa.aer.ad 10/10/17 Allergies Allergy/AdvReac Type Severity Reaction Status Date / Time acetaminophen Allergy HIVES Verified 11/10/17 18:10 azithromycin Allergy HIVES Verified 11/10/17 18:10 codeine Allergy HIVES Verified 11/10/17 18:10 hydrocodone Allergy SWELLING Verified 11/10/17 18:10 OF THE TONGUE Penicillins Allergy HIVES Verified 11/10/17 18:10 prednisone Allergy HIVES Verified 11/10/17 18:10 tramadol Allergy SWELLING Verified 11/10/17 18:10 OF THE TONGUE aspirin AdvReac NAUSEA Verified 11/10/17 18:10 ibuprofen AdvReac stomach Verified 11/10/17 18:10 bleed Travel Screening - Travel/Exposure Within Last 30 Days Have you traveled within the last 30 days?: No Review of Systems Constitutional: Denies: Chills, Fever Eyes: Denies: Eye discharge ENT: Denies: Congestion Respiratory: Reports: Dyspnea. Denies: Cough, Hemoptysis Cardiovascular: Reports: Chest pain. Denies: Arrhythmia, Dyspnea on exertion Endocrine: Denies: Fatigue Gastrointestinal: Denies: Diarrhea Genitourinary: Denies: Dysuria Musculoskeletal: Denies: Arthralgia Past Medical History - SOCIAL HISTORY Smoking Status: Former smoker Alcohol Use: None Drug Use: None - RESPIRATORY Hx Respiratory Disorders: Yes Hx Asthma: Yes Hx Bronchitis: Yes Hx COPD: Yes - CARDIOVASCULAR Hx Cardio Disorders: No - NEURO Hx Neuro Disorders: No - GI Hx GI Disorders: Yes Hx Reflux: Yes Hx Hiatal Hernia: Yes - Hx Genitourinary Disorders: Yes Hx Bladder Problem: Yes - ENDOCRINE Hx Endocrine Disorders: No - MUSCULOSKELETAL Hx Musculoskeletal Disorders: Yes Hx Back Injury: Yes - PSYCH Hx Psych Problems: No - HEMATOLOGY/ONCOLOGY Hx Hematology/Oncology Disorders: No Family Medical History Any Significant Family History?: No Physical Exam - General Limitations: No limitations Course Vital Signs 11/10/17 11/10/17 18:02 18:42 Temperature 97.4 F L Pulse Rate 112 H Pulse Rate [ 104 H Tank Tender ] Respiratory 18 20 Rate Blood Pressure 147/96 Blood Pressure 151/105 [Left Arm] Pulse Ox 96 95 - Reevaluation(s) Reevaluation #1: The labs were reviewed The hgb is 11.1 with a mild decrease since the previous The BUN/CR was normal with a normal GFR The Troponin is negative after months of pain The LFT's are negative with normal Lipase. 11/10/17 19:15 At the time of sign out the plan with Dr Ross was CT scan of the chest, abdomen and pelvis for his pains as they have not been imaged to this point. 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 Recommend endoscopy. The patient was informed Given weight loss and developing difficulty swallowing PO intake I recommend transfer The patient agrees and ONE CALL 11/10/17 22:[address] [facility] He accepts the patient for transfer for work up of the esophageal mass. 11/10/17 23:08 Room was assigned at [facility] The patient request transfer by private car. He is stable to go by private car He was sent with transfer packet including his CT scans Medical Decision Making - Lab Data Result diagrams: 11/10/17 18:34 11/10/17 18:34 Lab Results 11/10/17 11/10/17 11/10/17 Range/Units 18:34 18:34 18:34 WBC 8.5 (4.2-12.2) K/uL RBC 4.26 L (4.40-5.70) M/uL Hgb 11.1 L (14.0-18.0) gm/dl Hct 34.9 L (42.0-52.0) % MCV 81.9 (81-97) fl MCH 26.0 L (27-33) pg MCHC 31.8 L (32-36) g/dl RDW 14.1 (11.5-14.5) % Plt Count 444 H (130-400) K/uL MPV 10.7 H (7.4-10.4) fl Gran % 72.4 (47-80) % Lymphocytes % 14.2 L (16-45) % Monocytes % 7.5 (0-9) % Eosinophils % 5.3 (0-6) % Basophils % 0.6 (0-6) % PT 10.2 (9.5-12.1) SECONDS INR 0.9 APTT 37.2 (24.5-39.1) SECONDS Sodium 137 (136-145) mmol/L Potassium 4.2 (3.4-4.5) mmol/L Chloride 97 L (98-107) mmol/L Carbon Dioxide 24.0 (22-29) mmol/L Anion Gap 16.0 (7-16) BUN 11 (8-23) mg/dL Creatinine 0.7 (0.7-1.2) mg/dL Estimated GFR > 60 mL/min Random Glucose 111 H (74-109) mg/dL Calcium 9.2 (8.8-10.2) mg/dL Total Bilirubin 0.30 (0.2-1.0) mg/dL AST 18 (10.0-50.0) U/L ALT 21 (<41) U/L Alkaline Phosphatase 155 H (40-129) U/L Creatine Kinase 109 (39-308) U/L Total Protein 7.6 (6.6-8.7) g/dL Albumin 4.0 (4.0-5.0) g/dL Globulin 3.6 (1.4-4.8) gm/dL Albumin/Globulin Ratio 1.1 (1.1-1.8) Lipase 20 (13-60) U/L 11/10/17 Range/Units 18:34 WBC (4.2-12.2) K/uL RBC (4.40-5.70) M/uL Hgb (14.0-18.0) gm/dl Hct (42.0-52.0) % MCV (81-97) fl MCH (27-33) pg MCHC (32-36) g/dl RDW (11.5-14.5) % Plt Count (130-400) K/uL MPV (7.4-10.4) fl Gran % (47-80) % Lymphocytes % (16-45) % Monocytes % (0-9) % Eosinophils % (0-6) % Basophils % (0-6) % PT (9.5-12.1) SECONDS INR APTT (24.5-39.1) SECONDS Sodium (136-145) mmol/L Potassium (3.4-4.5) mmol/L Chloride (98-107) mmol/L Carbon Dioxide (22-29) mmol/L Anion Gap (7-16) BUN (8-23) mg/dL Creatinine (0.7-1.2) mg/dL Estimated GFR mL/min Random Glucose (74-109) mg/dL Calcium (8.8-10.2) mg/dL Total Bilirubin (0.2-1.0) mg/dL AST (10.0-50.0) U/L ALT (<41) U/L Alkaline Phosphatase (40-129) U/L Creatine Kinase (39-308) U/L Total Protein (6.6-8.7) g/dL Albumin (4.0-5.0) g/dL Globulin (1.4-4.8) gm/dL Albumin/Globulin Ratio (1.1-1.8) Lipase Cancelled (13-60) U/L Disposition Disposition: Transfer Clinical Impression: Epigastric pain, Chronic chest pain, Esophageal mass Disposition: Acute Care Hospital Transfer Transfer To: [facility] Reason For Transfer: Esophageal mass Accepting Physician: NATTY Time Discussed w/Accepting Physician: 22:20 Condition: (2) Stable Referrals: [facility] Specialty Clinics [Provider Group] Forms: Patient Portal Access Time of Disposition: 22:02 Quality - Quality Measures Quality Measures: N/A - Blood Pressure Screening Does Patient Have Any of the Following: No Blood Pressure Classification: Hypertensive Reading Systolic Measurement: 147 Diastolic Measurement: 96 Screening for High Blood Pressure: < Pre-Hypertensive BP, F/U Documented > [ G8950] Pre-Hypertensive Follow-up Interventions: Referral to alternative/primary care provider.
--- NOTE | 2017-11-11 14:25 | CT ANGIOGRAM REPORT ---
EXAM: CTA OF THE CHEST, ABDOMEN AND PELVIS HISTORY: PAIN. TECHNIQUE: After the administration of oral and 100 ml of Omnipaque 350 intravenous contrast, axial images are obtained from the thoracic inlet to the symphysis pubis. FINDINGS: The lungs are clear. No infiltrate or mass is identified. The heart and pulmonary vessels are normal. The thoracic aorta is within normal limits. No chest wall abnormalities are identified. 3D post processing CTA images demonstrate an unremarkable aortic arch without evidence of significant irregularity, dissection or aneurysm. The bones of the rib cage and spine are within normal limits with minimal lumbar DJD. The liver is unremarkable in size and shape without focal mass or biliary dilatation. The gallbladder is normal. The spleen and pancreas are normal. The kidneys and adrenal glands are within normal limits. There is retroperitoneal adenopathy beginning at the level of the renal hilum and extending to the gastrohepatic ligament. There is a hiatal hernia present. There is abnormal soft tissue near the right inguinal canal which could also represent adenopathy. There is no evidence of ascites. A suprapubic catheter is present. IMPRESSION: 1. ABNORMAL EXAMINATION. ON THE PRIOR STUDY OF 07/27/14, THE PATIENT DID DEMONSTRATE A SMALL HIATAL HERNIA, BUT IN COMPARISON, THE GASTROESOPHAGEAL JUNCTION IS MARKEDLY THICKENED AND THERE IS REGIONAL ADENOPATHY. ADDITIONALLY, THERE ARE SMALL FOCI OF ABNORMAL SOFT TISSUE IN THE MESENTERY, OMENTUM AND RIGHT INGUINAL REGION WHICH ARE SUSPICIOUS FOR PERITONEAL SPREAD OF TUMOR. 2. THERE IS NO CONVINCING EVIDENCE OF HEPATIC METASTATIC DISEASE ON TODAY'S STUDY. NO PULMONARY METASTATIC FOCI ARE IDENTIFIED. JOB NUMBER: [id number] MTDD
== END 2017-11-10 23:20 | disposition short-term general hospital (02) ==
LOC: ER 18:01
DX: K22.8 Other specified diseases of esophagus (principal); R07.9 Chest pain, unspecified; R10.13 Epigastric pain; R11.0 Nausea; J44.9 Chronic obstructive pulmonary disease, unspecified; Z87.891 Personal history of nicotine dependence
CPT/HCPCS: 99285 ×2; 82550; 83690; 85025; 85730; 85610; 82553; 80048; 80053; 84443; 84484; 85379; 71275; 74174; 93005; 93010; Q9967